=== PATIENT | male | born 1960 | race Caucasian/White ===

== ENCOUNTER 2023-11-19 12:56 | Inpatient (IN) | payer MEDICAID ==
[~2023-11-19] VITALS: Ht 182.9 cm; Wt 134.5 kg
[~2023-11-19 12:56] MED LIST: CAR3125T PO; FURO20TA3 PO; LOSA25TA5 PO
[2023-11-19 13:29] VITALS: PULSE 82; RESP 18; O2SAT 93
[2023-11-19 14:10] LABS: INR 1.11 (0.9-1.15); Prothrombin Time 11.6 sec (9.3-11.8)
[2023-11-19 14:14] LABS: Alanine Aminotransferase 20 U/L (7-40); Albumin 3.2 g/dL (3.2-4.8); Alkaline Phosphatase 67 U/L (46-116); Anion Gap 4 (5-15); Aspartate Aminotransferase 16 U/L (13-40); BUN/Creatinine Ratio 29.7 (10.0-20.0); Blood Urea Nitrogen 30 mg/dL (9-23); Calcium 8.5 mg/dL (8.5-10.1); Carbon Dioxide 30 mmol/L (20-30); Chloride 107 mmol/L (98-107); Glucose 125 mg/dL (74-106); Potassium 4.4 mmol/L (3.5-5.1); Sodium 141 mmol/L (136-145)
[2023-11-19 14:15] LABS: Basophils # (auto) 0.1 10 ^3/uL (0-0.2); Basophils % (auto) 0.4 % (0.0-2.0); Eosinophils # (auto) 0.2 10 ^3/uL (0-0.8); Eosinophils % (auto) 1.1 % (0.0-7.0); Hematocrit 45.6 % (41.0-53.0); Hemoglobin 14.7 g/dL (13.5-17.5); Lymphocytes # (auto) 2.9 10 ^3/uL (0.4-5.4); Lymphocytes % (auto) 15.9 % (10.0-50.0); Mean Corpuscular Hemoglobin 30.9 pg (28.0-32.0); Mean Corpuscular Hgb Conc. 32.3 g/dL (32.0-36.0); Mean Corpuscular Volume 95.8 fL (80.0-100.0); Monocytes # (auto) 1.4 10 ^3/uL (0-1.3); Monocytes % (auto) 7.7 % (0.0-12.0); Neutrophils # (auto) 13.7 10 ^3/uL (1.6-8.6); Neutrophils % (auto) 74.9 % (37.0-80.0); Nucleated Red Blood Cells % 0.1 %; Red Blood Cells 4.76 10^6/uL (4.5-5.90); Red Cell Distribution Width 13.7 % (11.8-14.3); Total Protein 5.1 g/dL (5.7-8.2); White Blood Cell 18.3 10^3/uL (4.4-10.8)
[2023-11-19] MEDS: PANTOPRAZOLE 80 MG in SODIUM CHL 0.9% 100 ML IV ONE (15:18)
[2023-11-19] MEDS: OCTREOTIDE ACETATE 100 MCG in SODIUM CHL 0.9% 50 ML IV ONE (15:33)
[2023-11-19] MEDS: OCTREOTIDE ACETATE 500 MCG in SODIUM CHL 0.9% 99 ML IV SCH (15:44)
[2023-11-19] MEDS: PANTOPRAZOLE 40mg/50ML NS AE 50 ML IV ONE (15:44)
[2023-11-19] MEDS ORDERED: hydrALAZINE HCL 20 MG/ML VL IV PRN (17:00)
[2023-11-19] MEDS ORDERED: DOCUSATE SOD 100 MG CAP PO PRN (17:00)
[2023-11-19] MEDS ORDERED: MORPHINE SULFATE INJ 2 MG/ml SYRG IV PRN (17:00)
[2023-11-19] MEDS ORDERED: ONDANSETRON HCL 4 MG/2 ML VIAL IV PRN (17:00)
[2023-11-19] MEDS ORDERED: SODIUM CHLORIDE 0.9% 1,000 ML IV SCH (17:00)
[2023-11-19] MEDS ORDERED: NITROGLYCERIN 0.4 MG SL TAB SL PRN (17:00)
[2023-11-19] MEDS ORDERED: metroNIDAZOLE 500MG/100ML 100 ML IV ONE (17:15)
[2023-11-19] MEDS: metroNIDAZOLE 500MG/100ML 100 ML IV SCH (17:58)
[2023-11-19] MEDS: cefTRIAXone 1GM/50ML D5W 50 ML IV ONE (17:58)
[2023-11-19 18:27] LABS: Hematocrit 42.8 % (41.0-53.0); Hemoglobin 13.8 g/dL (13.5-17.5)
[2023-11-19] MEDS: SODIUM CHLORIDE 0.9% 1,000 ML IV SCH (18:28)
[2023-11-19] MEDS: FUROSEMIDE 20 MG/2 ML VIAL IV SCH (18:28)
[2023-11-19 19:30] VITALS: PULSE 74; RESP 12; O2SAT 99
[2023-11-19 22:04] LABS: Hematocrit 43.5 % (41.0-53.0); Hemoglobin 13.8 g/dL (13.5-17.5)
[2023-11-19] MEDS ORDERED: CARV6.2551 PO (23:38)
[2023-11-19] MEDS ORDERED: FURO40TA4 PO (23:38)
[2023-11-19] MEDS ORDERED: LOSA100T58 PO (23:39)
[2023-11-19 23:40] VITALS: BP 136/70; PULSE 60; RESP 18; TEMP 97.5; O2SAT 97
[2023-11-20] MEDS: OCTREOTIDE ACETATE 500 MCG/ML VL ONE (01:55)
[2023-11-20 02:55] LABS: Hematocrit 44.2 % (41.0-53.0)
[2023-11-20 07:17] LABS: Alanine Aminotransferase 15 U/L (7-40); Alkaline Phosphatase 47 U/L (46-116); Anion Gap 2 (5-15); Aspartate Aminotransferase 18 U/L (13-40); BUN/Creatinine Ratio 18.5 (10.0-20.0); Bilirubin, Total 0.8 mg/dL (0.2-1.0); Blood Urea Nitrogen 17 mg/dL (9-23); Calcium 8.3 mg/dL (8.5-10.1); Carbon Dioxide 31 mmol/L (20-30); Chloride 107 mmol/L (98-107); Cholesterol 140 mg/dL (< 200); Glucose 121 mg/dL (74-106); HDL Cholesterol 26 mg/dL (40-59); LDL Cholesterol 73 mg/dL (< 100); Potassium 4.3 mmol/L (3.5-5.1); Sodium 140 mmol/L (136-145); Total Protein 5.1 g/dL (5.7-8.2); Triglycerides 284 mg/dL (< 150)
[2023-11-20 07:45] LABS: Basophils # (auto) 0.1 10 ^3/uL (0-0.2); Basophils % (auto) 0.6 % (0.0-2.0); Eosinophils # (auto) 0.3 10 ^3/uL (0-0.8); Eosinophils % (auto) 1.9 % (0.0-7.0); Hematocrit 41.7 % (41.0-53.0); Hemoglobin 13.3 g/dL (13.5-17.5); Lymphocytes % (auto) 20.7 % (10.0-50.0); Mean Corpuscular Hemoglobin 30.9 pg (28.0-32.0); Mean Corpuscular Hgb Conc. 31.7 g/dL (32.0-36.0); Mean Corpuscular Volume 97.3 fL (80.0-100.0); Monocytes # (auto) 1.4 10 ^3/uL (0-1.3); Monocytes % (auto) 9.4 % (0.0-12.0); Neutrophils # (auto) 9.8 10 ^3/uL (1.6-8.6); Neutrophils % (auto) 67.4 % (37.0-80.0); Red Blood Cells 4.29 10^6/uL (4.5-5.90); Red Cell Distribution Width 13.9 % (11.8-14.3); White Blood Cell 14.5 10^3/uL (4.4-10.8)
[2023-11-20 08:00] VITALS: PULSE 70; PULSE 73; RESP 18; O2SAT 98
[2023-11-20] MEDS: PANTOPRAZOLE 40 MG/10 ML VIAL INJ IV SCH (09:22)
[2023-11-20] MEDS: cefTRIAXone 1GM/50ML D5W 50 ML IV SCH (09:23)
[2023-11-20] MEDS: MORPHINE SULFATE INJ 2 MG/ml SYRG IV PRN (10:44)
[2023-11-20] MEDS ORDERED: MIDAZOLAM HCL 5 MG/ML-1ML VIAL ONE (11:02)
[2023-11-20] MEDS ORDERED: FLUMAZENIL 0.1 MG/ML INJ 10ML MDV IV ONE (11:02)
[2023-11-20] MEDS ORDERED: LIDOCAINE VISCOUS 2% 15ML UD ONE ×2 (11:02→14:08)
[2023-11-20] MEDS ORDERED: diphenhdrAMINE HCL 50 MG/1 ML VL ONE (11:02)
[2023-11-20] MEDS ORDERED: SODIUM CHLORIDE LOCK 10 ML ONE (11:02)
[2023-11-20] MEDS ORDERED: NALOXONE HCL 0.4 MG/ML VIAL ONE (11:02)
[2023-11-20] MEDS ORDERED: fentaNYL CITRATE 100 MCG/2 ML VL ONE ×2 (11:03→14:13)
[2023-11-20 13:00] VITALS: BP 123/80; PULSE 67; RESP 18; TEMP 97.9; O2SAT 98
[2023-11-20] MEDS ORDERED: MIDAZOLAM HCL 2MG/2ML 2ml VIAL (1mg/ml) ONE (14:13)
[2023-11-20] MEDS ORDERED: KETAMINE 50mg/ML 1ml syringe ONE (14:14)
[2023-11-20 14:29] VITALS: O2SAT 100
[2023-11-20] MEDS: SUCRALFATE 1 GM/10 ML ORAL SUSP PO SCH (16:59)
[2023-11-20 17:00] VITALS: BP 104/61; PULSE 78; RESP 18; TEMP 97.7; O2SAT 96
[2023-11-20] MEDS: PANTOPRAZOLE 40mg/50ML NS AE 50 ML IV SCH (18:01)
[2023-11-20 20:00] VITALS: PULSE 83; O2SAT 98
[2023-11-20] MEDS: FUROSEMIDE 20 MG/2 ML VIAL IV SCH (21:05)
[2023-11-20 22:00] VITALS: BP 121/49; PULSE 62; RESP 18; TEMP 98.3; O2SAT 93
[2023-11-21 05:00] VITALS: BP 133/50; PULSE 74; RESP 17; TEMP 98.4; O2SAT 97
[2023-11-21 07:29] LABS: Basophils # (auto) 0.1 10 ^3/uL (0-0.2); Basophils % (auto) 0.5 % (0.0-2.0); Eosinophils # (auto) 0.2 10 ^3/uL (0-0.8); Eosinophils % (auto) 1.7 % (0.0-7.0); Hematocrit 39.3 % (41.0-53.0); Hemoglobin 12.7 g/dL (13.5-17.5); Lymphocytes # (auto) 1.6 10 ^3/uL (0.4-5.4); Lymphocytes % (auto) 12.9 % (10.0-50.0); Mean Corpuscular Hemoglobin 31.3 pg (28.0-32.0); Mean Corpuscular Hgb Conc. 32.2 g/dL (32.0-36.0); Mean Corpuscular Volume 97.1 fL (80.0-100.0); Monocytes # (auto) 1.4 10 ^3/uL (0-1.3); Monocytes % (auto) 11.6 % (0.0-12.0); Neutrophils # (auto) 9.1 10 ^3/uL (1.6-8.6); Neutrophils % (auto) 73.3 % (37.0-80.0); Red Blood Cells 4.05 10^6/uL (4.5-5.90); White Blood Cell 12.4 10^3/uL (4.4-10.8)
[2023-11-21 07:48] LABS: Alanine Aminotransferase 12 U/L (7-40); Albumin 3.2 g/dL (3.2-4.8); Alkaline Phosphatase 43 U/L (46-116); Anion Gap 3 (5-15); Aspartate Aminotransferase 14 U/L (13-40); BUN/Creatinine Ratio 14.1 (10.0-20.0); Blood Urea Nitrogen 12 mg/dL (9-23); Calcium 8.1 mg/dL (8.7-10.4); Carbon Dioxide 32 mmol/L (20-30); Chloride 104 mmol/L (98-107); Glucose 145 mg/dL (74-106); Potassium 4.1 mmol/L (3.5-5.1); Sodium 139 mmol/L (136-145); Total Protein 5.4 g/dL (5.7-8.2)
[2023-11-21 08:00] VITALS: PULSE 74; PULSE 80; RESP 16; O2SAT 94
[2023-11-21 08:45] VITALS: BP 107/81; PULSE 74; RESP 16; TEMP 98.3; O2SAT 94
[2023-11-21] MEDS ORDERED: SUCR1TAB22 OR (11:42)
[2023-11-21] MEDS ORDERED: PANT40TA2 PO ×2 (11:42→11:47)
[2023-11-21 12:49] VITALS: BP 109/83; PULSE 72; RESP 18; TEMP 98.1; O2SAT 96
== END 2023-11-21 13:00 | disposition home or self-care (01) | DRG 241 ==
LOC: EDBD 12:56 → ER 12:56 → TELE 17:01 → TELE-WESTW 23:00
PROVIDERS: ADMIT Nurse Practitioner Family; ATTEND Internal Medicine Geriatric Medicine
PROC: 0DB68ZX Excision of Stomach, Via Natural or Artificial Opening Endoscopic, Diagnostic (ICD-10-PCS; 2023-11-20)
PROC: 0DB98ZX Excision of Duodenum, Via Natural or Artificial Opening Endoscopic, Diagnostic (ICD-10-PCS; principal; 2023-11-20 14:15)
DX: K25.4 Chronic or unspecified gastric ulcer with hemorrhage (principal); I11.0 Hypertensive heart disease with heart failure; I50.9 Heart failure, unspecified; E66.01 Morbid (severe) obesity due to excess calories; K29.91 Gastroduodenitis, unspecified, with bleeding; J44.9 Chronic obstructive pulmonary disease, unspecified; F17.210 Nicotine dependence, cigarettes, uncomplicated; T39.395A Adverse effect of other nonsteroidal anti-inflammatory drugs [NSAID], initial encounter; Z68.41 Body mass index [BMI] 40.0-44.9, adult; Z88.8 Allergy status to other drugs, medicaments and biological substances; Z71.6 Tobacco abuse counseling; Z79.82 Long term (current) use of aspirin; Z82.49 Family history of ischemic heart disease and other diseases of the circulatory system
CPT/HCPCS: 36415; 71045; 74176; 80053; 80061; 83036; 83690; 83735; 85014; 85018; 85025; 85610; 86850; 86900; 86901; 87040; 87081; 93005; 96365; C9113; G0378; J2250; J3490